=== PATIENT | female | born 1970 | race Two or more races ===

== ENCOUNTER 2023-02-08 14:35 | Emergency (ER) | payer OTHER ==
[~2023-02-08] VITALS: Ht 157.5 cm; Wt 86.2 kg
[2023-02-08] MEDS ORDERED: ENDOMETRIN100 MG VAG (15:07)
[2023-02-08] MEDS ORDERED: CLARITIN5 MG PO (15:07)
[2023-02-08] MEDS ORDERED: PROAIR RESPICL90 MCG IH (15:07)
== END 2023-02-08 17:13 | disposition home or self-care (01) ==
LOC: ER 14:35
DX: J45.901 Unspecified asthma with (acute) exacerbation (principal); Z88.6 Allergy status to analgesic agent